=== PATIENT | female | born 1990 | race American Indian/Alaskan Native ===

== ENCOUNTER 2017-11-08 11:31 | Emergency (ER) | payer OTHER ==
[~2017-11-08] VITALS: Ht 152.4 cm; Wt 118.0 kg
[~2017-11-08 11:31] MED LIST: GUAI120015 PO; HYDR-3965 PO; IBUP-1984 PO; NO HOME MEDS
[2017-11-08] MEDS ORDERED: PENI500T2 PO (11:51)
[2017-11-08 12:05] VITALS: BP 154/89
== END 2017-11-08 12:08 | disposition home or self-care (01) ==
LOC: ER 11:31
DX: J02.9 Acute pharyngitis, unspecified (principal); R11.2 Nausea with vomiting, unspecified; J45.909 Unspecified asthma, uncomplicated; M19.90 Unspecified osteoarthritis, unspecified site; Z79.899 Other long term (current) drug therapy
CPT/HCPCS: 99283

== ENCOUNTER 2018-01-22 14:52 | Emergency (ER) | payer SELFPAY ==
[~2018-01-22] VITALS: Ht 170.2 cm; Wt 105.0 kg
[2018-01-22 14:54] VITALS: BP 168/101
[2018-01-22] MEDS ORDERED: TRAM50TA2 PO (15:14)
== END 2018-01-22 15:53 | disposition home or self-care (01) ==
LOC: ER 14:52
DX: M54.5 Low back pain (principal); J45.909 Unspecified asthma, uncomplicated; M19.90 Unspecified osteoarthritis, unspecified site; Y08.89XA Assault by other specified means, initial encounter; Y93.89 Activity, other specified; Y92.098 Other place in other non-institutional residence as the place of occurrence of the external cause; Y99.8 Other external cause status
CPT/HCPCS: 99283

== ENCOUNTER 2018-01-26 15:48 | Emergency (ER) | payer OTHER ==
[~2018-01-26] VITALS: Ht 170.2 cm; Wt 115.4 kg
[~2018-01-26 15:48] MED LIST changes: +TRAM50TA2 PO
[2018-01-26] MEDS ORDERED: acetaminophen 325mg tablet PO ONE ×2 (16:20)
[2018-01-26] MEDS ORDERED: NAPR-56 PO (16:57)
[2018-01-26] MEDS ORDERED: CYCL-1 PO (16:57)
[2018-01-26] MEDS ORDERED: ACET-2615 PO (16:57)
[2018-01-26 17:27] VITALS: BP 143/115
== END 2018-01-26 17:28 | disposition home or self-care (01) ==
LOC: ER 15:48
DX: S39.012A Strain of muscle, fascia and tendon of lower back, initial encounter (principal); J45.909 Unspecified asthma, uncomplicated; M19.90 Unspecified osteoarthritis, unspecified site; F12.90 Cannabis use, unspecified, uncomplicated; Z79.899 Other long term (current) drug therapy; Y04.8XXA Assault by other bodily force, initial encounter; Y93.89 Activity, other specified; Y92.89 Other specified places as the place of occurrence of the external cause; Y99.8 Other external cause status
CPT/HCPCS: 99283

== ENCOUNTER 2018-05-12 10:10 | Emergency (ER) | payer MEDICAID, OTHER ==
[~2018-05-12] VITALS: Ht 167.6 cm; Wt 114.0 kg
[~2018-05-12 10:10] MED LIST changes: +CYCL-1 PO; -TRAM50TA2 PO
[2018-05-12 10:18] VITALS: BP 138/94
== END 2018-05-12 11:25 | disposition left against medical advice (07) ==
LOC: ER 10:11
DX: R10.9 Unspecified abdominal pain (principal); R11.10 Vomiting, unspecified; Z53.21 Procedure and treatment not carried out due to patient leaving prior to being seen by health care provider

== ENCOUNTER 2019-05-06 18:25 | Emergency (ER) | payer BC, MEDICAID ==
[~2019-05-06] VITALS: Ht 167.6 cm; Wt 90.9 kg
[2019-05-06] MEDS ORDERED: ketorolac tromethamine 15mg/ml inj. IM ONE (18:55)
[2019-05-06 19:43] VITALS: BP 133/84
== END 2019-05-06 19:40 | disposition home or self-care (01) ==
LOC: ER 18:26
DX: G89.29 Other chronic pain (principal); M25.561 Pain in right knee; J45.909 Unspecified asthma, uncomplicated; M19.90 Unspecified osteoarthritis, unspecified site; F12.90 Cannabis use, unspecified, uncomplicated
CPT/HCPCS: 29505; 73564; 96372; 99283; J1885

== ENCOUNTER 2019-06-20 21:17 | Emergency (ER) | payer BC, OTHER ==
[~2019-06-20] VITALS: Ht 170.2 cm; Wt 100.0 kg
[2019-06-20] MEDS ORDERED: ketorolac trometh inj. 60 MG/2 ML VIAL IM ONE (21:55)
--- NOTE | 2019-06-20 22:24 | NUR ---
PT TO CT
[2019-06-20 23:16] VITALS: BP 136/89
== END 2019-06-20 23:30 | disposition home or self-care (01) ==
LOC: ER 21:17
DX: S16.1XXA Strain of muscle, fascia and tendon at neck level, initial encounter (principal); S09.90XA Unspecified injury of head, initial encounter; J45.909 Unspecified asthma, uncomplicated; M19.90 Unspecified osteoarthritis, unspecified site; F12.90 Cannabis use, unspecified, uncomplicated; Z87.891 Personal history of nicotine dependence; Z79.899 Other long term (current) drug therapy; V49.9XXA Car occupant (driver) (passenger) injured in unspecified traffic accident, initial encounter; Y93.89 Activity, other specified; Y92.89 Other specified places as the place of occurrence of the external cause; Y99.8 Other external cause status
CPT/HCPCS: 70450; 72125; 96372; 99285; J1885